=== PATIENT | female | born 1990 | race Caucasian/White ===

== ENCOUNTER 2017-03-14 09:27 | Inpatient (IN) | payer MEDICAID, MEDICARE ==
[~2017-03-14] VITALS: Ht 147.3 cm; Wt 74.8 kg
[~2017-03-14 09:27] MED LIST: BACI28.43 PO; DULO20CA45 PO; LEVE100020 PO; ONDA4TAB7 PO; PARO40TA45 PO; PROM12.553 RC; TRAZ100T15 PO; WARF3TAB7 PO; WARF5TAB PO; WARF6TAB7 PO
[2017-03-14] MEDS ORDERED: SODIUM CHLORIDE 0.9% 1,000 ML IV ONE ×2 (09:52→14:34)
[2017-03-14] MEDS ORDERED: ONDANSETRON 2MG/ML, 2ML IVPush ONE (10:00)
[2017-03-14] MEDS ORDERED: SODIUM CHLORIDE 0.9% 1,000ML IVBOLUS ONE (10:00)
[2017-03-14] MEDS ORDERED: SODIUM CHLORIDE FLUSH 10ML SYR IVF ONE ×2 (10:00→15:00)
[2017-03-14] MEDS ORDERED: WARF5TAB PO (10:05)
[2017-03-14] MEDS ORDERED: DULO60CA7 PO (10:05)
[2017-03-14] MEDS ORDERED: LEVE500T53 PO (10:05)
[2017-03-14] MEDS ORDERED: HYDROmorphone 1 MG/ML, 1ML ONE ×2 (10:14→11:06)
[2017-03-14] MEDS ORDERED: ONDANSETRON 2MG/ML, 2ML ONE ×2 (10:14→16:04)
[2017-03-14] MEDS: HYDROmorphone 1 MG/ML, 1ML IVPush PRN ×2 (10:15→11:16)
[2017-03-14 10:35] LABS: ASPARTATE AMINO TRANSFERASE 12 U/L (15-37); BLOOD UREA NITROGEN 9 mg/dL (7-18)
[2017-03-14] MEDS ORDERED: DIPHENHYDRAMINE 50 MG/ML, 1ML IVPush ONE (11:00)
[2017-03-14] MEDS ORDERED: METOCLOPRAMIDE 5 MG/ML, 2ML ONE (11:06)
[2017-03-14] MEDS ORDERED: DIPHENHYDRAMINE 50 MG/ML, 1ML ONE (11:06)
[2017-03-14 11:24] LABS: OCCBLD OBC PASS
[2017-03-14] MEDS ORDERED: METOCLOPRAMIDE 5 MG/ML, 2ML IVPush ONE (11:30)
[2017-03-14] MEDS ORDERED: PROMETHAZINE 25 MG/ML, 1ML IM PRN (15:00)
[2017-03-14] MEDS ORDERED: MORPHINE SULFATE 4 MG/ML, 1ML IVPush PRN (15:00)
[2017-03-14] MEDS ORDERED: NS + 20MEQ KCL 1,000 ML IV ONE (15:12)
[2017-03-14] MEDS ORDERED: MORPHINE SULFATE 4 MG/ML, 1ML ONE (16:04)
[2017-03-14] MEDS: ONDANSETRON 2MG/ML, 2ML IVP PRN ×2 (16:06→17:27)
[2017-03-14] MEDS: NS + 20MEQ KCL 1,000 ML IV SCH ×2 (16:06→23:38)
[2017-03-14 16:09] LABS: DAU SCREEN DISCLAIMER
[2017-03-14 17:18] VITALS: BP 127/82
[2017-03-14] MEDS: HYDROcodone/APAP 5/325 TABLET PO PRN (17:27)
[2017-03-14] MEDS ORDERED: WARFARIN 3 MG TABLET PO-COUM ONE (18:00)
[2017-03-14 18:56] VITALS: BP 119/80
[2017-03-14] MEDS ORDERED: TRAZODONE 100MG TABLET PO SCH (21:00)
[2017-03-14] MEDS ORDERED: LEVETIRACETAM 500 MG TABLET PO SCH (21:00)
[2017-03-14] MEDS: FAMOTIDINE 20 MG/2 ML IV SCH (21:22)
[2017-03-15 01:19] VITALS: BP 121/85
[2017-03-15] MEDS: HYDROcodone/APAP 5/325 TABLET PO PRN ×4 (03:44→19:13)
[2017-03-15 05:12] LABS: BLOOD UREA NITROGEN 3 mg/dL (7-18)
[2017-03-15 07:40] VITALS: BP 125/86
[2017-03-15] MEDS: FAMOTIDINE 20 MG/2 ML IV SCH (08:23)
[2017-03-15] MEDS: NS + 20MEQ KCL 1,000 ML IV SCH (08:23)
[2017-03-15] MEDS ORDERED: WARFARIN 5 MG TABLET PO-COUM SCH (09:00)
[2017-03-15] MEDS ORDERED: DULOXETINE 30 MG CAPSULE.DR PO SCH (09:00)
[2017-03-15 14:56] VITALS: BP 118/81
[2017-03-15] MEDS ORDERED: WARFARIN 3 MG TABLET PO-COUM ONE (18:00)
[2017-03-15] MEDS: ONDANSETRON 2MG/ML, 2ML IVP PRN (20:55)
[2017-03-16] MEDS ORDERED: DULOXETINE 30 MG CAPSULE.DR PO SCH (21:00)
== END 2017-03-15 22:10 | disposition left against medical advice (07) | DRG 392 ==
LOC: ED 10:53 → EDIP 14:34 → 3NE 17:10
PROVIDERS: ADMIT Hospitalist; ATTEND Hospitalist
PROC: 0T9B70Z Drainage of Bladder with Drainage Device, Via Natural or Artificial Opening (ICD-10-PCS; principal; 2017-03-14)
PROC: HZ34ZZZ Individual Counseling for Substance Abuse Treatment, Interpersonal (ICD-10-PCS; 2017-03-14)
DX: R11.2 Nausea with vomiting, unspecified (principal); D68.59 Other primary thrombophilia; E86.0 Dehydration; F41.1 Generalized anxiety disorder; R51 Headache; F32.9 Major depressive disorder, single episode, unspecified; G47.00 Insomnia, unspecified; E87.6 Hypokalemia; Z86.711 Personal history of pulmonary embolism; Z88.8 Allergy status to other drugs, medicaments and biological substances; Z80.49 Family history of malignant neoplasm of other genital organs; Z83.3 Family history of diabetes mellitus; Z90.49 Acquired absence of other specified parts of digestive tract; Z79.01 Long term (current) use of anticoagulants; F12.188 Cannabis abuse with other cannabis-induced disorder; Z71.51 Drug abuse counseling and surveillance of drug abuser
CPT/HCPCS: 36415; 74176; 80048; 80053; 80307; 81001; 82272; 83690; 84703; 85025; 85610; 85730; 87324; 89055; 96361; 96374; 96375; 96376; J1170; J2405; J2550; J3480; J1200; J2765; J7030; S0028

== ENCOUNTER 2017-04-22 07:38 | Emergency (ER) | payer MEDICARE, MEDICAID ==
[~2017-04-22] VITALS: Ht 147.3 cm; Wt 74.0 kg
[~2017-04-22 07:38] MED LIST changes: +DULO60CA7 PO; +LEVE500T53 PO
[2017-04-22 07:39] VITALS: BP 120/80
[2017-04-22] MEDS ORDERED: HYDROcodone/APAP 5/325 TABLET ONE ×2 (08:16→09:24)
[2017-04-22] MEDS ORDERED: KETOROLAC 30 MG/1 ML ONE (08:16)
[2017-04-22] MEDS ORDERED: KETOROLAC 30 MG/1 ML IM ONE (08:30)
[2017-04-22] MEDS ORDERED: HYDROcodone/APAP 5/325 TABLET PO ONE ×2 (08:30→09:30)
== END 2017-04-22 10:18 | disposition home or self-care (01) ==
LOC: ED 10:00
DX: S76.012A Strain of muscle, fascia and tendon of left hip, initial encounter (principal); Z86.718 Personal history of other venous thrombosis and embolism; X50.1XXA Overexertion from prolonged static or awkward postures, initial encounter; Y93.89 Activity, other specified; Y92.89 Other specified places as the place of occurrence of the external cause; Y99.9 Unspecified external cause status
CPT/HCPCS: 99284

== ENCOUNTER 2017-06-06 13:17 | Emergency (ER) | payer MEDICARE, MEDICAID ==
[~2017-06-06] VITALS: Ht 147.3 cm; Wt 72.9 kg
[2017-06-06] MEDS ORDERED: SODIUM CHLORIDE FLUSH 10ML SYR IVF ONE (14:00)
[2017-06-06] MEDS ORDERED: SODIUM CHLORIDE 0.9% 1,000ML IVBOLUS ONE ×2 (14:00→17:00)
[2017-06-06] MEDS ORDERED: MORPHINE SULFATE 4 MG/ML, 1ML IVPush PRN (14:00)
[2017-06-06] MEDS ORDERED: DIPHENHYDRAMINE 50 MG/ML, 1ML IVPush ONE ×2 (14:30→17:30)
[2017-06-06] MEDS ORDERED: methylPREDNISolone SOD SUCC 125 MG/2 ML IVPush ONE (14:30)
[2017-06-06] MEDS ORDERED: methylPREDNISolone SOD SUCC 125 MG/2 ML ONE (14:42)
[2017-06-06] MEDS ORDERED: DIPHENHYDRAMINE 50 MG/ML, 1ML ONE ×2 (14:42→17:12)
[2017-06-06] MEDS ORDERED: HYDROmorphone 1 MG/ML, 1ML ONE ×4 (14:42→16:51)
[2017-06-06] MEDS ORDERED: LORazepam 2 MG/ML, 1ML ONE (14:45)
[2017-06-06 14:49] LABS: BLOOD UREA NITROGEN 8 mg/dL (7-18)
[2017-06-06 14:59] LABS: IS PT STATUS REG ER OR PRE ER? YES
[2017-06-06] MEDS ORDERED: KETOROLAC 30 MG/1 ML IVPush ONE (15:00)
[2017-06-06] MEDS ORDERED: HYDROmorphone 1 MG/ML, 1ML IV ONE ×2 (15:00→17:00)
[2017-06-06] MEDS ORDERED: LORazepam 2 MG/ML, 1ML IVP ONE (15:00)
[2017-06-06] MEDS ORDERED: OMNIPAQUE 350 MG/ML, 100ML BOTTLE ONE (15:48)
[2017-06-06 18:21] VITALS: BP 126/74
== END 2017-06-06 18:24 | disposition home or self-care (01) ==
LOC: ED 14:10
DX: R07.89 Other chest pain (principal); Z91.041 Radiographic dye allergy status
CPT/HCPCS: 36415; 71010; 71275; 80048; 82040; 84484; 85025; 85610; 93005; 96361; 96374; 96375; 96376; 99285; J1170; J1200; J2930; J7030; Q9967

== ENCOUNTER 2017-06-07 16:16 | Emergency (ER) | payer MEDICARE, MEDICAID ==
[~2017-06-07] VITALS: Ht 147.3 cm; Wt 72.2 kg
[2017-06-07 16:17] VITALS: BP 110/69
[2017-06-07] MEDS ORDERED: IBUPROFEN 200 MG TABLET PO ONE (17:00)
[2017-06-07] MEDS ORDERED: OXYcodone/APAP 5/325MG TABLET PO ONE (17:00)
[2017-06-07] MEDS ORDERED: OXYcodone/APAP 5/325MG TABLET ONE (17:17)
[2017-06-07] MEDS ORDERED: IBUPROFEN 200 MG TABLET ONE (17:17)
[2017-06-07 17:57] LABS: IS PT STATUS REG ER OR PRE ER? YES
== END 2017-06-07 18:45 | disposition home or self-care (01) ==
LOC: ED 17:59
DX: R07.89 Other chest pain (principal); Z86.718 Personal history of other venous thrombosis and embolism; Z86.711 Personal history of pulmonary embolism; Z90.710 Acquired absence of both cervix and uterus; Z88.8 Allergy status to other drugs, medicaments and biological substances
CPT/HCPCS: 36415; 71020; 84484; 93005; 99285

== ENCOUNTER → 2017-07-10 | Outpatient (CLI) | payer MEDICARE, MEDICAID ==
[2017-07-14 06:11] LABS: DILUTE PROTHROMBIN TIME (DPT) 45.1 sec (0.0-55.0); DILUTE RUSSELL'S VIPER VENOM 40.6 sec (0.0-47.0); LUPUS REFLEX INTERPRETATION Comment: (.); PTT-LA 39.6 sec (0.0-51.9)
[2017-07-14 20:07] LABS: ANTITHROMBIN III ACTIVITY 105 % (75-135)
[2017-07-16 09:07] LABS: FACTOR II DNA ANALYSIS Negative (.)
== END | disposition home or self-care (01) ==
LOC: CFH 08:40
PROVIDERS: ATTEND Nurse Practitioner Family
DX: Z79.01 Long term (current) use of anticoagulants (principal)
CPT/HCPCS: 36415; 81240; 81241; 82232; 85300; 85301; 85303; 85306; 85379; 85613; 85670; 85705; 85732; 86147

== ENCOUNTER 2017-08-04 09:32 | Emergency (ER) | payer MEDICARE, MEDICAID ==
[~2017-08-04] VITALS: Ht 147.3 cm; Wt 73.1 kg
[~2017-08-04 09:32] MED LIST changes: -PARO40TA45 PO; +PARO40TA61 PO
[2017-08-04 10:21] LABS: HEMATOCRIT 43.6 % (34.6-47.8); HEMOGLOBIN 14.5 g/dL (11.7-16.4); WHITE BLOOD COUNT 8.8 x10^3/uL (3.4-10)
[2017-08-04] MEDS ORDERED: ONDANSETRON 2MG/ML, 2ML ONE (10:27)
[2017-08-04] MEDS ORDERED: HYDROmorphone 1 MG/ML, 1ML ONE ×3 (10:27→14:09)
[2017-08-04] MEDS ORDERED: ONDANSETRON 2MG/ML, 2ML IVPush ONE (10:30)
[2017-08-04] MEDS ORDERED: SODIUM CHLORIDE FLUSH 10ML SYR IVF ONE (10:30)
[2017-08-04] MEDS ORDERED: SODIUM CHLORIDE 0.9% 1,000ML IVBOLUS ONE ×3 (10:30→13:00)
[2017-08-04] MEDS: HYDROmorphone 1 MG/ML, 1ML IVPush PRN ×2 (10:30→11:02)
[2017-08-04 10:33] LABS: ASPARTATE AMINO TRANSFERASE 9 U/L (15-37); BLOOD UREA NITROGEN 9 mg/dL (7-18)
[2017-08-04] MEDS ORDERED: METOCLOPRAMIDE 5 MG/ML, 2ML ONE (11:48)
[2017-08-04] MEDS ORDERED: DIPHENHYDRAMINE 50 MG/ML, 1ML ONE ×2 (11:48→12:38)
[2017-08-04] MEDS ORDERED: METOCLOPRAMIDE 5 MG/ML, 2ML IVPush ONE (12:00)
[2017-08-04] MEDS ORDERED: DIPHENHYDRAMINE 50 MG/ML, 1ML IVPush ONE ×2 (12:00→13:00)
[2017-08-04] MEDS ORDERED: methylPREDNISolone SOD SUCC 125 MG/2 ML ONE (12:38)
[2017-08-04] MEDS ORDERED: methylPREDNISolone SOD SUCC 125 MG/2 ML IVPush SCH (13:00)
[2017-08-04] MEDS ORDERED: OMNIPAQUE 350 MG/ML, 150 ML BOTTLE ONE (13:55)
[2017-08-04] MEDS ORDERED: HYDROmorphone 2 MG/ML, 1ML IVPush PRN (14:30)
[2017-08-04 14:44] VITALS: BP 140/70
== END 2017-08-04 14:47 | disposition left against medical advice (07) ==
LOC: ED 12:53
DX: R19.7 Diarrhea, unspecified (principal); R10.9 Unspecified abdominal pain; R00.0 Tachycardia, unspecified; Z86.711 Personal history of pulmonary embolism; Z86.718 Personal history of other venous thrombosis and embolism; Z90.49 Acquired absence of other specified parts of digestive tract
CPT/HCPCS: 36415; 71275; 74176; 80053; 81001; 83690; 84703; 85025; 85610; 87040; 87086; 93005; 96361; 96374; 96375; 96376; 99285; J1170; J1200; J2405; J2765; J2930; J7030; Q9967

== ENCOUNTER 2017-08-05 11:46 | Emergency (ER) | payer MEDICARE, MEDICAID ==
[~2017-08-05] VITALS: Ht 147.3 cm; Wt 73.0 kg
[2017-08-05 13:54] VITALS: BP 132/85
== END 2017-08-05 13:56 | disposition home or self-care (01) ==
LOC: ED 13:00
DX: R00.0 Tachycardia, unspecified (principal); R10.31 Right lower quadrant pain; Z86.711 Personal history of pulmonary embolism; Z86.718 Personal history of other venous thrombosis and embolism
CPT/HCPCS: 93005; 99283

== ENCOUNTER → 2017-09-08 | Outpatient (CLI) | payer MEDICARE, MEDICAID | END | disposition home or self-care (01) | LOC: CFH 10:01 | PROVIDERS: ATTEND Family Medicine | DX: M25.511 Pain in right shoulder (principal); M54.2 Cervicalgia | CPT/HCPCS: 72040 ==

== ENCOUNTER 2017-11-05 05:37 | Emergency (ER) | payer MEDICARE, MEDICAID ==
[2017-11-05] MEDS ORDERED: ACETAMINOPHEN 325 MG TABLET PO ONE (06:30)
[2017-11-05] MEDS ORDERED: LORazepam 1MG TABLET PO ONE (06:30)
[2017-11-05] MEDS ORDERED: ACETAMINOPHEN 325 MG TABLET ONE (06:39)
[2017-11-05] MEDS ORDERED: LORazepam 1MG TABLET ONE (06:40)
[2017-11-05 08:03] VITALS: BP 121/78
== END 2017-11-05 08:06 | disposition home or self-care (01) ==
LOC: ED 06:32
DX: R07.89 Other chest pain (principal); F41.9 Anxiety disorder, unspecified; Z86.711 Personal history of pulmonary embolism
CPT/HCPCS: 36415; 71020; 85610; 93005; 99285

== ENCOUNTER → 2017-11-06 | Outpatient (CLI) | payer MEDICARE, MEDICAID | END | disposition home or self-care (01) | LOC: CFH 10:07 | PROVIDERS: ATTEND Family Medicine | DX: R19.7 Diarrhea, unspecified (principal) | CPT/HCPCS: 36415; 87046; 87324; 87328; 87329; 89055 ==

== ENCOUNTER 2017-11-26 16:16 | Emergency (ER) | payer MEDICARE, MEDICAID ==
[~2017-11-26] VITALS: Ht 147.3 cm; Wt 76.9 kg
[2017-11-26 16:46] VITALS: BP 139/82
[2017-11-26] MEDS ORDERED: HYDROcodone/APAP 10/325 MG TABLET PO ONE (18:04)
[2017-11-26] MEDS ORDERED: HYDROcodone/APAP 10/325 MG TABLET ONE (18:12)
== END 2017-11-26 19:16 | disposition home or self-care (01) ==
LOC: ED 19:10
DX: G89.29 Other chronic pain (principal); M25.511 Pain in right shoulder; Z90.49 Acquired absence of other specified parts of digestive tract
CPT/HCPCS: 99282

== ENCOUNTER 2017-12-05 05:21 | Emergency (ER) | payer MEDICARE, MEDICAID ==
[~2017-12-05] VITALS: Ht 147.3 cm; Wt 78.1 kg
[2017-12-05 05:22] VITALS: BP 125/81
[2017-12-05] MEDS ORDERED: HYDROcodone/APAP 5/325 TABLET PO ONE (06:30)
[2017-12-05] MEDS ORDERED: KETOROLAC 30 MG/1 ML IM ONE (06:30)
[2017-12-05] MEDS ORDERED: KETOROLAC 30 MG/1 ML ONE (06:45)
[2017-12-05] MEDS ORDERED: HYDROcodone/APAP 5/325 TABLET ONE (06:45)
== END 2017-12-05 08:04 | disposition home or self-care (01) ==
LOC: ED 07:35
DX: M25.511 Pain in right shoulder (principal); W06.XXXA Fall from bed, initial encounter; Y93.89 Activity, other specified; Y92.89 Other specified places as the place of occurrence of the external cause; Y99.8 Other external cause status
CPT/HCPCS: 73030; 96372; 99284; J1885